=== PATIENT | female | born 1955 | race Caucasian/White ===

== ENCOUNTER → 2017-03-20 08:16 | Outpatient (CLI) | payer MEDICARE ==
[2015-03-04 13:45] VITALS: BMI 31.3
[~2017-03-20 08:16] MED LIST: BAYER CHEWABLE81 MG PO; BIAXIN 500 MG500 MG PO; CELEBREX 100 M100 MG PO; CYMBALTA60 MG PO; FEXOFENADINE HC60 MG PO; LEVAQUIN750 MG PO; LUNESTA2 M1 PO; MULTI-DAY VITAM1 TAB PO; NORCO 10/325 TA1 TA1 PO; PHENERGAN25 M1 PO; PROAIR HFA8.5 GM INH; PROTONIX40 MG PO; RELAFEN500 MG PO
== END | disposition home or self-care (01) ==
LOC: D.MRI 08:16
DX: M54.16 Radiculopathy, lumbar region (principal)